=== PATIENT | male | born 1965 | race African-American/Black ===

== ENCOUNTER 2024-04-28 10:12 | Outpatient (CLI) | payer OTHER | END 2024-04-28 10:13 | disposition home or self-care (01) | LOC: SCSRAD 10:12 | PROVIDERS: ATTEND Family Medicine | DX: M51.370 Other intervertebral disc degeneration, lumbosacral region with discogenic back pain only (principal); M47.816 Spondylosis without myelopathy or radiculopathy, lumbar region | CPT/HCPCS: 72100 ==